=== PATIENT | male | born 1985 ===

== ENCOUNTER 2019-01-21 18:18 | Emergency (ER) | payer OTHER, SELFPAY ==
--- NOTE | 2019-01-21 18:54 | ER ---
Nurse's Notes [facility] Name: Tyshawn Sargent Age: 33 yrs Sex: Male : 1985 Arrival Date: 01/21/2019 Time: 18:19 Bed 25 Private MD: Diagnosis: Vapor inhalation;Non-toxic exposure to industrial chemicals Presentation: 01/21 18:19 Note Contacted poison control prior to pt's arrival to ER and they stated treatment for aa5 Butyraldehyde inhalation is only if pt is symptomatic and no need for pt to go to decontamination station. 18:25 Presenting complaint: EMS states: patient had chemical exposure (inhalation) of mg2 butyraldehyde and acroliene today \\T\\ 1400H. denies respiratory or other symptoms. Transition of care: patient was not received from another setting of care. Onset of symptoms was January 21, 2019 at 14:00. Risk Assessment: Do you want to hurt yourself or someone else? Patient reports no desire to harm self or others. Initial Sepsis Screen: Does the patient meet any 2 criteria? No. Patient's initial sepsis screen is negative. Does the patient have a suspected source of infection? No. Patient's initial sepsis screen is negative. Care prior to arrival: None. 18:25 Method Of Arrival: Ambulatory mg2 18:25 Acuity: JOAQUIN 4 mg2 Triage Assessment: 19:14 General: Appears in no apparent distress. Respiratory: mg2 19:14 General: Appears. Respiratory: Reports no symptoms. mg2 Historical: - Allergies: 18:31 PENICILLINS; mg2 - Home Meds: 18:31 None [Active]; mg2 - PMHx: 18:31 None; mg2 - PSHx: 18:31 Tonsillectomy; esophageal fistula correction; eye surgery; mg2 - Immunization history:: Flu vaccine is not up to date. - Social history:: Smoking status: Patient/guardian denies using tobacco, Patient uses alcohol, but reports only rare drinking. Patient/guardian denies using street drugs, IV drugs. - Ebola Screening: : No symptoms or risks identified at this time. - Family history:: not pertinent. - Hospitalizations: : No recent hospitalization is reported. Screenin:12 Abuse screen: Denies threats or abuse. Denies injuries from another. Nutritional mg2 screening: No deficits noted. Tuberculosis screening: No symptoms or risk factors identified. Fall Risk None identified. Assessment: 18:40 Reassessment: Contacted poison control again at 1825. Spoke to Joanna (at [place] [id number] location) and notified that there was another chemical pt was possibly exposed to, Acrolein. 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 Joanna stated Acrolein is an eye/skin/mucous membrane/lung irritant and chest x-ray is recommended as baseline since pt is asymptomatic at this time. Joanna also recommends to monitor patient for a couple of hours. Dr. Waldron was notified of poison control recommendations. . 19:11 Reassessment: patient for discharge after the provider check his xray. mg2 19:13 General: Appears in no apparent distress. comfortable, Behavior is calm, cooperative. mg2 Pain: Denies pain. Neuro: Level of Consciousness is awake, alert, obeys commands, Oriented to person, place, time, situation. Cardiovascular: Capillary refill < 3 seconds Patient's skin is warm and dry. Cardiovascular: Rhythm is regular. Respiratory: Airway is patent Respiratory effort is even, unlabored, Breath sounds are clear bilaterally. in right upper lobe, left upper lobe, left posterior upper lobe and right posterior upper lobe. GI: No signs and/or symptoms were reported involving the gastrointestinal system. : No signs and/or symptoms were reported regarding the genitourinary system. EENT: No signs and/or symptoms were reported regarding the EENT system. Derm: Skin is intact, is healthy with good turgor, Skin is pink, warm \\T\\ dry. normal. Musculoskeletal: Circulation, motion, and sensation intact. Capillary refill < 3 seconds. Vital Signs: 18:28 BP 154 / 84; Pulse 74; Resp 18; Pulse Ox 100% on R/A; Weight 79.38 kg; Height 5 ft. 9 mg2 in. (175.26 cm); Pain 0/10; 19:58 BP 145 / 78; Pulse 80; Resp 18; Temp 98(O); Pulse Ox 100% ; Pain 0/10; mg2 18:28 Body Mass Index 25.84 (79.38 kg, 175.26 cm) mg2 ED Course: 18:19 Patient arrived in ED. [place] [facility] 18:22 Angel Waldron MD is Attending Physician. rn 18:25 Gardose, Shady, RN is Primary Nurse. mg2 18:27 Triage completed. mg2 18:32 Arm band placed on. mg2 19:03 XRAY Chest Pa And Lat (2 Views) In Process Unspecified. EDMS 19:13 Patient has correct armband on for positive identification. mg2 19:13 No provider procedures requiring assistance completed. Patient did not have IV access mg2 during this emergency room visit. Administered Medications: No medications were administered Outcome: 18:52 Discharge ordered by MD. rn 19:56 Discharged to home ambulatory. mg2 19:56 Condition: stable 19:56 Discharge instructions given to patient, Instructed on discharge instructions, follow up and referral plans. Demonstrated understanding of instructions, follow-up care. 19:58 Patient left the ED. mg2 Signatures: Dispatcher [employer] EDMS Angel Waldron MD MD rn Calderon, Audri, RN RN aa5 Shady Melendez, RN RN mg2
--- NOTE | 2019-01-21 18:54 | EDPHYS ---
Physician Documentation [facility] Name: Tyshawn Sargent Age: 33 yrs Sex: Male : 1985 Arrival Date: 01/21/2019 Time: 18:19 Bed 25 Private MD: ED Physician Angel Waldron HPI: 01/21 18:35 This 33 yrs old Male presents to ER via Ambulatory with complaints of rn Chemical Inhalation. 18:35 Type of Exposure: potential inhalation, a chemical. 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 Onset: The symptoms/episode began/occurred 4.5 hour(s) ago. Symptoms: The patient does not have any acute complaints. The patient has not experienced similar symptoms in the past. 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 Reports has seasonal allergies, but no symptoms from inhalation. Went to get checked and cleared by plant doctor but sent here for evaluation. Reports sure that butyraldehyde, but not sure if acrolein or how much was mixed in. Asymptomatic. No visual changes, no chest pain/sob/wheezing/cough/skin irritation. . Historical: - Allergies: 18:31 PENICILLINS; mg2 - Home Meds: 18:31 None [Active]; mg2 - PMHx: 18:31 None; mg2 - PSHx: 18:31 Tonsillectomy; esophageal fistula correction; eye surgery; mg2 - Immunization history:: Flu vaccine is not up to date. - Social history:: Smoking status: Patient/guardian denies using tobacco, Patient uses alcohol, but reports only rare drinking. Patient/guardian denies using street drugs, IV drugs. - Ebola Screening: : No symptoms or risks identified at this time. - Family history:: not pertinent. - Hospitalizations: : No recent hospitalization is reported. ROS: 18:35 Constitutional: Negative for fever, chills, and weight loss, Eyes: Negative for injury, rn pain, redness, and discharge, Neck: Negative for injury, pain, and swelling, Cardiovascular: Negative for chest pain, palpitations, and edema, Respiratory: Negative for shortness of breath, cough, wheezing, and pleuritic chest pain, Abdomen/GI: Negative for abdominal pain, nausea, vomiting, diarrhea, and constipation, MS/Extremity: Negative for injury and deformity, Skin: Negative for injury, rash, and discoloration, Neuro: Negative for headache, weakness, numbness, tingling, and seizure. Exam: 18:35 Constitutional: This is a well developed, well nourished patient who is awake, alert, rn and in no acute distress. Head/Face: Normocephalic, atraumatic. Eyes: No conjunctival irritation ENT: MMM, no stridor or oral swelling Neck: Trachea midline, no thyromegaly or masses palpated, and no cervical lymphadenopathy. Supple, full range of motion without nuchal rigidity, or vertebral point tenderness. No Meningismus. Cardiovascular: Regular rate and rhythm. No pulse deficits. Respiratory: Lungs have equal breath sounds bilaterally, clear to auscultation. No increased work of breathing, no retractions or nasal flaring. Speaking full sentences Skin: Warm, dry MS/ Extremity: Pulses equal, no cyanosis. Neuro: Awake and alert, GCS 15, oriented to person, place, time, and situation. Motor strength 5/5 in all extremities. Sensory grossly intact. Cerebellar exam normal Vital Signs: 18:28 BP 154 / 84; Pulse 74; Resp 18; Pulse Ox 100% on R/A; Weight 79.38 kg; Height 5 ft. 9 mg2 in. (175.26 cm); Pain 0/10; 19:58 BP 145 / 78; Pulse 80; Resp 18; Temp 98(O); Pulse Ox 100% ; Pain 0/10; mg2 18:28 Body Mass Index 25.84 (79.38 kg, 175.26 cm) mg2 MDM: 18:22 Patient medically screened. rn 18:47 Data reviewed: vital signs, nurses notes, and as a result, I will discharge patient. rn Counseling: I had a detailed discussion with the patient and/or guardian regarding: the historical points, exam findings, and any diagnostic results supporting the discharge/admit diagnosis, the need for outpatient follow up, to return to the emergency department if symptoms worsen or persist or if there are any questions or concerns that arise at home. Response to treatment: the patient is now symptom free, and as a result, I will discharge patient. Special discussion: I discussed with the patient/guardian in detail that at this point there is no indication for admission to the hospital. It is understood, however, that if the symptoms persist or worsen the patient needs to return immediately for re-evaluation. ED course: Pt asymptomatic, normal vitals, clear breath sounds, oxygen 100% on RA. Poison control recommended observation period which has now been more than 4 hours, and cxr for baseline, even if asymptomatic. 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 States will return if anything changes. . 18:51 ED course: Cxr to be followed up by GREG Santos. . rn 01/21 18:47 Order name: XRAY Chest Pa And Lat (2 Views); Complete Time: 19:41 rn Administered Medications: No medications were administered Disposition: 01/21/19 18:52 Discharged to Home. Impression: Vapor inhalation, Non-toxic exposure to industrial chemicals. - Condition is Stable. - Discharge Instructions: Chemical Inhalation Injury, Adult. - Medication Reconciliation Form, Thank You Letter, Antibiotic Education, Prescription Opioid Use form. - Follow up: Private Physician; When: As needed; Reason: Recheck today's complaints, Re-evaluation by your physician. - Problem is new. - Symptoms have improved. Signatures: Dispatcher [employer] EDMS Angel Waldron MD MD rn Roszak, Josh, PA PA [id number] Shady Melendez RN RN mg2 Corrections: (The following items were deleted from the chart) 19:58 18:52 01/21/2019 18:52 Discharged to Home. Impression: Vapor inhalation; Non-toxic mg2 exposure to industrial chemicals. Condition is Stable. Forms are Medication Reconciliation Form, Thank You Letter, Antibiotic Education, Prescription Opioid Use. Follow up: Private Physician; When: As needed; Reason: Recheck today's complaints, Re-evaluation by your physician. Problem is new. Symptoms have improved. rn
--- NOTE | 2019-01-21 19:36 | RAD REPORT ---
EXAM DESCRIPTION: RAD - Chest Pa And Lat (2 Views) - 01/21/2019 7:09 pm CLINICAL HISTORY: Inhalation injury, toxic exposure COMPARISON: None. TECHNIQUE: PA and lateral views of the chest were obtained. FINDINGS: The lungs are normal volume. No pulmonary edema. Interstitial markings are mildly prominen t suspected to be baseline for the patient. Acute interstitial edema or infiltrate not suspected. No volume overload or failure findings. Heart size is normal and central vasculature is within normal limits. No pleural effusion or pneumothorax seen. No acute bony finding noted. No aortic abnormali ty. IMPRESSION: No acute cardiopulmonary process.
== END 2019-01-21 19:58 | disposition home or self-care (01) ==
LOC: ER 18:18
DX: T59.891A Toxic effect of other specified gases, fumes and vapors, accidental (unintentional), initial encounter (principal); Z77.098 Contact with and (suspected) exposure to other hazardous, chiefly nonmedicinal, chemicals; Z88.0 Allergy status to penicillin
CPT/HCPCS: 71046; 99283